=== PATIENT | female | born 1955 | race Caucasian/White ===

== ENCOUNTER 2021-03-23 14:19 | Emergency (ER) | payer OTHER ==
[~2021-03-23] VITALS: Ht 157.5 cm; Wt 88.5 kg
[2021-03-23 17:55] VITALS: BP 160/75
== END 2021-03-23 18:25 | disposition home or self-care (01) ==
LOC: ER 14:19
DX: S93.601A Unspecified sprain of right foot, initial encounter (principal); I10 Essential (primary) hypertension; E78.5 Hyperlipidemia, unspecified; Z90.89 Acquired absence of other organs; Z87.891 Personal history of nicotine dependence; Z88.0 Allergy status to penicillin; W23.0XXA Caught, crushed, jammed, or pinched between moving objects, initial encounter; Y93.89 Activity, other specified; Y92.89 Other specified places as the place of occurrence of the external cause; Y99.8 Other external cause status
CPT/HCPCS: 73630